=== PATIENT | male | born 1950 | race Caucasian/White ===

== ENCOUNTER → 2016-08-03 | Day surgery (SDC) | payer BC, MEDICARE ==
[~2016-08-03] MED LIST: ASPIRIN EC81 M1 PO; ASPIRIN325 M1 PO; DITROPAN5 MG PO; LISINOPRIL10 MG PO; MULTI VITAMIN1 EACH PO; NITROGLYCERIN0.4 MG SL; OLIVE LEAF EXT250 MG PO; PANTOPRAZOLE SO40 MG PO; PREVAGEN PO; SINGULAIR PO; [UNRECOGNIZED DRUG - OTHER] PO
--- NOTE | ~2016-08-03 | OR ---
Unit #: [id number] #: [id number] Patient: RADHA SANDERS [id number] [address] [id number] MR#: [id number] NAME: RADHA SANDERS. ROOM: Date of Procedure: 08/03/2016 Admission Date: 08/03/2016 Surgeon: Juan Neal M.D. : 1950 Attending Physician: Juan Neal M.D. Primary Care Physician: Isabel Randolph M.D. OPERATIVE REPORT PREOPERATIVE DIAGNOSES The patient presented with history of retrosternal ascending heartburn and postprandial dyspepsia. In addition, he also needs a screening colonoscopy. PROCEDURES PERFORMED 1. Upper gastrointestinal endoscopy and biopsy. 2. Upper gastrointestinal endoscopy and dilation using a 60-Uzbek Brooks dilator as well as colonoscopy up to cecum and terminal ileum with excellent preparation and good visualization. POSTOPERATIVE DIAGNOSES For upper endoscopy: 1. The patient had distal erosive grade 2 esophagitis. 2. Early esophageal stricture. The latter was dilated using a 60-Uzbek Brooks dilator. 3. Prepyloric antral mild diffuse gastritis. 4. Focal patchy erosive duodenitis. 5. Rest of the examination up to third part of duodenum was normal. Biopsies obtained from the antrum for CLOtest. In addition, distal esophageal stricture was dilated using a 60-Uzbek Brooks dilator. For colonoscopy: 1. Completely normal examination up to cecum. The quality of the prep was excellent. No polyps, diverticula, or hemorrhoids noted. RECOMMENDATIONS 1. The patient being started on pantoprazole 40 mg p.o. daily. 2. He will be followed up in the office in 3 to 4 months' time. 3. He needs a repeat surveillance colonoscopy in 10 years. SEDATION USED MAC. DESCRIPTION OF PROCEDURE Following detailed explanation of potential risks and complications of an upper endoscopy and a colonoscopy, namely perforation, bleeding, and complications related to the sedation, the patient was brought to GI lab and laid in the left lateral decubitus position. Lubricated tip of the Olympus video upper endoscope was passed through the bite block into the proximal esophagus under direct vision. The entire esophageal mucosa was examined. The patient was noted to have grade 2 distal erosive esophagitis along with early esophageal stricture. The latter was felt to Unit #: [id number] #: [id number] Patient: RADHA SANDERS be partially obstructing. The scope was then advanced into the gastric cavity and the latter was insufflated. Mucosa of the fundus, body, and antrum examined and diffuse mild prepyloric antral erythema and erosions noted indicating antral gastritis. Pylorus was intubated with visualization of the normal duodenal bulb and second and third part of the duodenum. The pylorus was intubated with visualization of the duodenal bulb. The latter was noted to have focal patchy erosive duodenitis. Second and third part of duodenum were normal. Upon withdrawal and retroflexion, incisura, cardia, and greater curve examined and a biopsy obtained from the antrum for CLOtest. The scope was then withdrawn in the distal esophagus. A 60-Uzbek Brooks dilator was introduced through the oral cavity and advanced into the esophagus. Relook endoscopy showed fracturing of the distal esophageal stricture. Minimal bleeding was noted. The scope was then withdrawn all the way up to pharynx. No additional findings noted. The examination table was then turned by 180 degrees and the patient positioned for a colonoscopy. A digital rectal examination was performed, which was normal. Lubricated tip of the Olympus video colonoscope was inserted through the anus and advanced under direct vision. The scope was advanced and passed up to sigmoid into descending colon. No diverticula were noticed in this area. The scope tip was then navigated all the way up to cecum with visualization of the ileocecal valve and the appendiceal orifice. Preparation was excellent with good visualization and photodocumentation was obtained. Last several inches of terminal ileum also visualized after intubation of the ileocecal valve and appeared normal. Successive segments of the colonic mucosa were examined upon withdrawal and appeared unremarkable. There being no polyps, mass lesions, AVMs, or diverticula. The patient did not have any hemorrhoids at anal verge. The scope was then withdrawn. The patient returned to the recovery area. He tolerated the procedure without any postprocedure complications. Dictated byOscar Juan TD: 08/04/2016 06:33 JOB #: [id number] OPERATIVE REPORT Page 1 of 1 X Juan Neal MD PROCEDURE OPERATIVE NOTE
== END | disposition home or self-care (01) ==
LOC: COPS 11:51
DX: K21.0 Gastro-esophageal reflux disease with esophagitis (principal); K22.2 Esophageal obstruction; Z12.11 Encounter for screening for malignant neoplasm of colon; K29.70 Gastritis, unspecified, without bleeding; K29.80 Duodenitis without bleeding; I10 Essential (primary) hypertension; F17.200 Nicotine dependence, unspecified, uncomplicated; Z98.1 Arthrodesis status
CPT/HCPCS: 43239; 43450; G0121; J2250